=== PATIENT | female | born 1945 | race Caucasian/White ===

== ENCOUNTER 2021-06-18 18:09 | Inpatient (IN) | payer MEDICARE ==
[~2021-06-18] VITALS: Ht 170.2 cm; Wt 90.3 kg
[~2021-06-18 18:09] MED LIST: VIBRAMYCIN100 MG PO
[2021-06-18 18:47] LABS: HEMOGLOBIN 13.1 gm/dl (12.3-15.3); RED BLOOD COUNT 4.33 M/UL (4.00-5.10); WHITE BLOOD COUNT 13.6 K/UL (4.5-11.0)
[2021-06-18 19:16] LABS: BUN/CREATININE RATIO 30 (0-10)
[2021-06-19 06:00] LABS: HEMOGLOBIN 12.1 gm/dl (12.3-15.3); RED BLOOD COUNT 3.99 M/UL (4.00-5.10); WHITE BLOOD COUNT 14.8 K/UL (4.5-11.0)
[2021-06-19 06:38] LABS: BUN/CREATININE RATIO 27 (0-10)
[2021-06-19] MEDS ORDERED: SEROQUEL25 MG PO (12:19)
[2021-06-19] MEDS ORDERED: BUSPAR 10MG10 MG PO (12:20)
[2021-06-19] MEDS ORDERED: ATORVASTATIN CA40 MG PO (12:21)
[2021-06-19] MEDS ORDERED: OMEPRAZOLE40 MG PO (12:22)
[2021-06-19] MEDS ORDERED: CELECOXIB200 MG PO (12:23)
--- NOTE | 2021-06-19 17:05 | NUR ---
1530-PT NON-COMPLIANT WITH RUG RENOVATOR, REPLACED TELE 5-6 TIMES, EVEN TRIED POSTERIOR PLACEMENT. SITTER AT BEDSIDE, ALSO TRIED MULTIPLE ATTEMPTS TO GET PT TO WEAR TELEMETRY. PTS CAREGIVER AWARE PT WILL NOT WEAR RUG RENOVATOR. NOTIFIED DR. COOK PT WILL NOT WEAR TELEMETRY. ASKED IF WE COULD D/C ORDER. SHE DOES NOT WANT TO D/C BUT IS AWARE PT WILL NOT WEAR IT AT THIS TIME. DOCUMENT NON COMPLIANT AND PLEASE TRY AGAIN EACH SHIFT. BIOSTATISTICS MANAGER NEVAEH AWARE. NOTIFIED CRISTI CHAIREZ SMOKING PIPE REPAIRER NOTIFIED.
[2021-06-21] MEDS ORDERED: OMNICEF 300 MG300 MG PO (12:14)
== END 2021-06-21 14:05 | disposition home or self-care (01) | DRG 689 ==
LOC: ER1 18:09 → CDU 23:16 → MED SURG 4 23:16
PROVIDERS: Preventive Medicine Occupational Medicine; ADMIT Internal Medicine
DX: N30.00 Acute cystitis without hematuria (principal); G93.41 Metabolic encephalopathy; Z20.822 Contact with and (suspected) exposure to COVID-19; B96.4 Proteus (mirabilis) (morganii) as the cause of diseases classified elsewhere; E78.5 Hyperlipidemia, unspecified; M51.36 Other intervertebral disc degeneration, lumbar region; I10 Essential (primary) hypertension; G30.9 Alzheimer's disease, unspecified; F02.80 Dementia in other diseases classified elsewhere, unspecified severity, without behavioral disturbance, psychotic disturbance, mood disturbance, and anxiety; G89.29 Other chronic pain; M54.9 Dorsalgia, unspecified; Z82.49 Family history of ischemic heart disease and other diseases of the circulatory system
CPT/HCPCS: 0240U; 36600; 70450; 71045; 80048; 80053; 80307; 81001; 82009; 82533; 82550; 82553; 82803; 83036; 83605; 83690; 83735; 83880; 84439; 84443; 84484; 85025; 85652; 86140; 87040; 87077; 87086; 87186; 93005; 96374; 96375; 97161; 97167; 99285; J0696; J1650; J2405; J2543

== ENCOUNTER 2021-08-04 18:39 | Emergency (ER) | payer MEDICARE ==
[~2021-08-04 18:39] MED LIST changes: +ATORVASTATIN CA40 MG PO; +BUSPAR 10MG10 MG PO; +CELECOXIB200 MG PO; +OMEPRAZOLE40 MG PO; +OMNICEF 300 MG300 MG PO; +SEROQUEL25 MG PO
[2021-08-04 21:57] LABS: RED BLOOD COUNT 4.43 M/UL (4.00-5.10); WHITE BLOOD COUNT 9.9 K/UL (4.5-11.0)
[2021-08-04 22:23] LABS: BUN/CREATININE RATIO 31 (0-10)
== END 2021-08-05 17:00 | disposition short-term general hospital (02) ==
LOC: ER1 18:39
PROVIDERS: Family Medicine
DX: S32.511A Fracture of superior rim of right pubis, initial encounter for closed fracture (principal); C41.4 Malignant neoplasm of pelvic bones, sacrum and coccyx; Z20.822 Contact with and (suspected) exposure to COVID-19; C77.4 Secondary and unspecified malignant neoplasm of inguinal and lower limb lymph nodes; F03.90 Unspecified dementia, unspecified severity, without behavioral disturbance, psychotic disturbance, mood disturbance, and anxiety; K68.9 Other disorders of retroperitoneum; N13.30 Unspecified hydronephrosis; I10 Essential (primary) hypertension; W19.XXXA Unspecified fall, initial encounter
CPT/HCPCS: 72193; 80053; 81001; 83605; 85025; 96360; 99285; Q9967; U0002